=== PATIENT | female | born 1965 | race Caucasian/White ===

== ENCOUNTER 2018-04-17 18:59 | Emergency (ER) | payer BC ==
[~2018-04-17] VITALS: Ht 180.3 cm; Wt 77.1 kg
[~2018-04-17 18:59] MED LIST: CLARITIN-D 121 EACH PO; IMODIUM ADVANC1 EAC1 PO; LIPITOR 20 MG T20 M1 PO; NEXIUM40 MG; PREDNISONE 5 MG5 M1 PO; ZOFRAN ODT4 MG PO; [UNRECOGNIZED DRUG - REMARK]
[2018-04-17 19:38] LABS: HEMATOCRIT 39.3 % (37.0-47.0); HEMOGLOBIN 13.7 gm/dL (12.0-15.0); MCH 31.8 pg (26.0-34.0); MCHC 34.8 g/dL (28.0-37.0); MCV 91.4 fL (80.0-100.0); PLATELET COUNT 132 thou/uL (150-400); RDW 13.4 % (10.5-14.5); WBC 3.4 thou/uL (4.0-11.0)
[2018-04-17 19:45] LABS: ANION GAP 9 mmol/L (7-16); BUN 8 mg/dL (7-18); CALCIUM 9.4 mg/dL (8.5-10.1); CHLORIDE 104 mmol/L (98-107); CO2 28 mmol/L (21-32); CREATININE 0.7 mg/dL (0.6-1.0); GLUCOSE 95 mg/dL (74-106); POTASSIUM 3.5 mmol/L (3.5-5.1); SODIUM 141 mmol/L (136-145)
[2018-04-17 19:55] LABS: ALBUMIN 3.7 g/dL (3.4-5.0); LIPASE 103 U/L (73-393); SGOT 21 U/L (15-37); SGPT 31 U/L (30-65); TOTAL BILIRUBIN 0.6 mg/dL (<0.1-1.0); TOTAL PROTEIN 7.3 g/dL (6.4-8.2); TROPONIN-I <0.06 ng/mL (<0.06)
[2018-04-17 20:04] LABS: ABSOLUTE NEUTROPHILS 2.3 thou/uL (1.4-8.2)
[2018-04-17 20:25] LABS: URINE BILIRUBIN NEGATIVE (Negative); URINE BLOOD NEGATIVE (Negative); URINE CLARITY CLEAR; URINE COLOR YELLOW; URINE GLUCOSE-RANDOM* NEGATIVE (Negative); URINE KETONES 1+ (Negative); URINE LEUKOCYTES-REFLEX NEGATIVE (Negative); URINE NITRITE-REFLEX NEGATIVE (Negative); URINE PROTEIN (DIPSTICK) NEGATIVE (Negative); URINE UROBILINOGEN 0.2 E.U./dl (0.2-1.0)
[2018-04-17] MEDS ORDERED: PRILOSEC 20 MG20 MG PO (20:27)
[2018-04-17] MEDS ORDERED: ZOFRAN ODT4 MG DISSOLVE (20:27)
[2018-04-17] MEDS ORDERED: TESSALON PERLE100 MG PO (21:00)
[2018-04-17 21:07] VITALS: BP 120/70
--- NOTE | 2018-04-19 08:42 | EKG ---
[address] [address] ELECTROCARDIOGRAM REPORT Name: FOSTER GRACE JEAN MARIE Room #: [facility]ITALMarit[facility] [id number] Admission: 04/17/18 Attend Phys: Discharge: 04/17/18 Date of : 65 Report #: [id number] THIS REPORT FOR: //name// [facility] ED Test Date: 2018-04-17 Test Time: 19:34:24 Pat Name: FOSTER GRACE Department: Room: Gender: F Supervisor Final: marlon : 1965 Requested By: Roverto Torres Order Number: [id number] MD: Lucian Shay Measurements Intervals [place] Rate: 48 P: 63 OK: 168 QRS: 66 QRSD: 100 T: 77 QT: 452 QTc: 404 Interpretive Statements Sinus bradycardia Otherwise no significant abnormality Compared to ECG 03/25/2015 02:13:20 No significant change was found Electronically Signed On 04-19-2018 8:41:54 [employer]NAGER by Lucian Shay [email or web address] <ELECTRONICALLY SIGNED> By: Lucian Shay MD, [facility] 04/19/18 [id number] Lucian Shay MD, FACC /EPI
== END 2018-04-17 21:13 | disposition home or self-care (01) ==
LOC: ER 18:59
PROVIDERS: Emergency Medicine
DX: E86.0 Dehydration (principal); D72.819 Decreased white blood cell count, unspecified; D69.6 Thrombocytopenia, unspecified